=== PATIENT | female | born 1980 | race Caucasian/White ===

== ENCOUNTER 2019-08-10 09:14 | Emergency (ER) | payer MEDICAID ==
[~2019-08-10] VITALS: Ht 157.5 cm; Wt 68.0 kg
[~2019-08-10 09:14] MED LIST: ACET1TAB12 PO; METR-167 PO; TRAM50TA3 PO
[2019-08-10] MEDS ORDERED: KETOROLAC 60MG/2ML VIAL IM STA (13:23)
[2019-08-10] MEDS ORDERED: ACETAMINOPHEN 325MG TABLET PO STA (13:23)
[2019-08-10 13:36] VITALS: BP 120/70
== END 2019-08-10 15:05 | disposition home or self-care (01) ==
LOC: ER 09:14
DX: B34.9 Viral infection, unspecified (principal); Z87.19 Personal history of other diseases of the digestive system; Z98.890 Other specified postprocedural states; Z79.899 Other long term (current) drug therapy
CPT/HCPCS: 71045; 81025; 87804; 96372; 99284; J1885

== ENCOUNTER 2019-08-12 09:48 | Emergency (ER) | payer MEDICAID ==
[~2019-08-12] VITALS: Ht 170.2 cm; Wt 69.0 kg
[2019-08-12] MEDS ORDERED: KETOROLAC 30MG/ML VIAL IV STA (10:30)
[2019-08-12] MEDS ORDERED: ACETAMINOPHEN 325MG TABLET PO STA (10:30)
[2019-08-12] MEDS ORDERED: SODIUM CHLORIDE 0.9% 1000ML BAG (SEPSIS BOLUS) IV ONE (10:30)
[2019-08-12 11:23] LABS: BASOPHILS % 0.3 % (0.0-2.0); EOSINOPHILS % 0.3 % (0.0-5.0); HEMATOCRIT. 39.6 % (36.0-48.0); HEMOGLOBIN. 13.3 g/dL (12.0-16.0); LYMPHOCYTES % 10.1 % (20.0-50.0); MEAN CORPUSCULAR HEMOGLOBIN 28.5 pg (28.0-32.0); MEAN PLATELET VOLUME 8.3 fl (7.4-10.4); MONOCYTES % 4.7 % (2.0-8.0); NEUTROPHILS % 84.6 % (40.0-76.0); PLATELET 180 x1000/uL (130-400); RED BLOOD CELL COUNT 4.65 mill/uL (4.2-5.4); RED CELL DISTRIBUTION WIDTH 14.2 % (11.6-14.6)
[2019-08-12 11:27] LABS: CLARITY URINE CLEAR (CLEAR); COLOR URINE YELLOW (YELLOW); KETONES URINE NEGATIVE (NEGATIVE); LEUKOCYTE ESTERASE URINE NEGATIVE (NEGATIVE); NITRITE URINE NEGATIVE (NEGATIVE); OCCULT BLOOD URINE NEGATIVE (NEGATIVE); PH URINE 5.5 (4.5-8.0); PROTEIN URINE NEGATIVE (NEGATIVE); SPECIFIC GRAVITY URINE 1.026 (1.005-1.030)
[2019-08-12 11:30] LABS: CHLORIDE 105 mEq/L (98-107)
[2019-08-12] MEDS ORDERED: OSELTAMIVIR 75MG CAPSULE PO ONE (11:45)
[2019-08-12] MEDS ORDERED: POTASSIUM CHLORIDE 20MEQ TABLET SR PO ONE (11:45)
[2019-08-12 12:37] VITALS: BP 124/74
== END 2019-08-12 14:04 | disposition home or self-care (01) ==
LOC: ER 09:48
DX: J10.1 Influenza due to other identified influenza virus with other respiratory manifestations (principal); R05 Cough; R50.9 Fever, unspecified; R51 Headache; R00.0 Tachycardia, unspecified; E03.9 Hypothyroidism, unspecified; Z90.49 Acquired absence of other specified parts of digestive tract; Z79.899 Other long term (current) drug therapy
CPT/HCPCS: 36415; 71045; 80053; 81003; 81025; 85025; 87070; 87430; 87804; 93005; 96374; 99284; J1885; J7030; Z7610